=== PATIENT | female | born 1945 | race Caucasian/White ===

== ENCOUNTER → 2016-07-05 | Day surgery (SDC) | payer MEDICARE, OTHER ==
[~2016-07-05] MED LIST: ACETAMINOPHEN/HYDROcodone 325 MG/5 MG TAB ONE; APREPITANT 40 MG CAP ONE; BUPIVACAINE HCL PF 0.75% 30 ML VIAL ONE; CALC600T34 PO; CETI10CH PO; CLINDAMYCIN PHOS 600 MG/4 ML VIAL ONE; EPINEPHrine HCL (1:1000) 30 MG/30 ML VIAL ONE; LACTATED RINGER'S 1000 ML INJ 1,000 ML ONE; LIDOCAINE 1.5%/EPINEPHrine 1:200,000 PF SOLN 30 ML AMP ONE; MIDAZOLAM HCL 5 MG/ML VIAL (1 ML) ONE; NEXI40CA PO; PROPOFOL 200 MG/20 ML AMP IV ONE; ROSU40 PO; SODIUM CHLORIDE 0.9% SOLN 100 ML (PAB) BAG IV ONE; SPIR25 PO; TAB-TAB PO; TORS20 PO; [UNRECOGNIZED DRUG - OTHER] PO
--- NOTE | 2016-07-05 13:26 | MP ---
cc: MARIKA UMANA M.D. DATE OF SURGERY 07/05/2016 PREOPERATIVE DIAGNOSIS Right shoulder small full-thickness rotator cuff tear and long head of the biceps tear and impingement syndrome. POSTOPERATIVE DIAGNOSIS Right shoulder small full-thickness rotator cuff tear and long head of the biceps tear and impingement syndrome. PROCEDURE 1. Right shoulder arthroscopic rotator cuff repair. 2. Right shoulder arthroscopic biceps tenodesis. 3. Right shoulder arthroscopic subacromial decompression. ANESTHESIA Interscalene block and general. SURGEON Marika Umana MD [employer] LICENSE AGENT SURGEON Kike MONTERO. ESTIMATED BLOOD LOSS Minimal. DRAINS None. SPECIMEN None. COMPLICATIONS None known. INDICATION Quita Quintana is a 71-year-old female with a past history of rotator cuff repair in her left shoulder which has done well. She had prior manipulation under anesthesia of the right shoulder and prior arthroscopic extensive debridement. She has had chronic anterior pain and on new imaging study, a CT arthrogram has shown a full-thickness rotator cuff tear and evidence of abnormality of the biceps tendon. We have tried extensive conservative measures with failure to improved with conservative measures. She is now offered arthroscopic surgery. The risks and benefits were thoroughly discussed and a detailed informed consent was obtained. PROCEDURE The patient was given interscalene block, brought into the operating room, placed under general anesthetic. She was turned to the lateral decubitus position, axillary roll in place. The right shoulder was prepped and draped in the usual sterile fashion, IV antibiotics given. Time-out was completed. We made a posterior portal and introduced the cannula and the first photograph shows some minimal change to the articular surface of the humeral. Glenoid looked good. Looking upward we saw significant tear of the biceps tendon, some mild fraying of the labrum. We proceeded to look upwards saw a small full-thickness rotator cuff tear just posterior to the biceps tendon and we brought the shaver in through this and then proceeded with placement of locking stitches in the biceps tendon and then released the biceps tendon, then came into the subacromial space and prepared the footprint of the rotator cuff. We then prepared the site for a biceps tenodesis and then proceeded with biceps tenodesis using the [employer] instrumentation, 7-mm screw with excellent fixation. The additional sutures were used to help close [id number] rotator interval, tear and the footprint of the supraspinatus. Two Bio-composite suture anchors were placed with each stitch getting four horizontal mattress sutures. This pulled down to the footprint very nicely, solid repair. The bone quality did look slightly soft and when the anchors were placed did not give the typical squeaky sound but this is consistent with her age and the anchors themselves seemed solid. We then proceeded to identify the anterior acromion where there was a little recurrent bony overgrowth and a photograph was taken of this and we proceeded with subacromial decompression and a follow-up photograph here. There was also significant scar tissue medially which was resected. The arthroscopic equipment was removed. We proceeded with closure of the portals with absorbable sutures, Steri-Strips applied, sterile dressing applied, standard sling applied. The patient was awoken and returned to the recovery room in stable condition. MD JERICA Lozano/POLLO /12:40 PM /1:12 PM
== END | disposition home or self-care (01) ==
LOC: ESDC 07:46
PROVIDERS: ATTEND Orthopaedic Surgery Sports Medicine
DX: M75.121 Complete rotator cuff tear or rupture of right shoulder, not specified as traumatic (principal); S46.111A Strain of muscle, fascia and tendon of long head of biceps, right arm, initial encounter; M75.41 Impingement syndrome of right shoulder
CPT/HCPCS: 01630; 01716; 01991; 29826; 29827; 29828; 64417; C1713; J0171; J2250; J7120; J8501